=== PATIENT | male | born 1955 | race Caucasian/White ===

== ENCOUNTER 2016-09-10 18:24 | Emergency (ER) | payer MEDICARE ==
[~2016-09-10] VITALS: Ht 177.8 cm; Wt 154.2 kg
[2016-09-10] MEDS ORDERED: BP MED (19:02)
--- NOTE | 2016-09-10 19:07 | ED Chest Pain ---
General Chief Complaint: Chest Wall/Rib Pain Stated Complaint: CHEST PAIN THAT GOES TO BACK Nursing Triage Note: L BACK/CHEST PAIN X2 DAYS WITH DIAPHORESIS. WORSE ON PALPATION AND MOVEMENT. Nursing Sepsis Screen: No Definite Risk Source: patient Exam Limitations: no limitations History of Present Illness Time seen by provider: 18:59 Initial Comments Patient presents with his daughter to the ER for chest wall pain that is intermittent over the last 2 days that he feels in the left side under his breast. He was having some sweats and flushing although he states he has had flushes of the face all his life. He also has difficulty belching for many years and difficulty with swallowing for many years. He smokes a pack a day and drinks 4-5 beers every other day. He denies any other drug use, thyroid disorder. He does take medicines for his blood pressure and cholesterol. He has no prior history of ND however he had a stress test approximate 7 years ago that was normal. He denies having been screened for AAA. He denies shortness of breath Allergies and Home Medications Allergies Uncoded Allergies: ANTIBIOTIC (Allergy, Unknown, 09/10/16) Home Medications Famotidine 20 Mg Tablet, 20 MG PO BID for 30 Days, #60 Ref 0 Prescribed by: JUNIE PEREZ on 09/10/162151 [[facility]] , (Reported) Review of Systems Constitutional: No chills, No fever Respiratory: Denies Cough, Denies Shortness of Air, Denies SOA With Exertion Cardiovascular: See HPI, Chest Pain, Denies Edema, Denies Palpitations, Denies Syncope Gastrointestinal: Abdominal Pain (epigastric), Denies Constipated, Denies Diarrhea, Difficulty Swallowing, Nausea Genitourinary: Denies Burning, Denies Discharge Musculoskeletal: No back pain, No joint pain Skin: No pruritus, No rash Past [id number]-[id number] Hx Patient Social History Alcohol Use: Denies Use Recreational Drug Use: No Smoking Status: Current Everyday Smoker Recent Foreign Travel: No Contact w/Someone Who Travel: No Recent Infectious Disease Expo: No Recent Hopitalizations: No Surgeries HX Surgeries: Yes Surgeries: Appendectomy, Orthopedic Respiratory Hx Respiratory Disorders: Yes (BRONCHITIS) Cardiovascular Cardiac Disorders: Hypertension Genitourinary Hx Genitourinary Disorders: No Gastrointestinal Hx Gastrointestinal Disorders: No Physical Exam Vital Signs Vital Sign - Last 12Hours 09/10/16 18:46 Temp 98.2 Pulse 78 Resp 18 B/P (MAP) 124/89 Pulse Ox 98 Capillary Refill : Less Than 3 Seconds General Appearance: No Apparent Distress, WD/WN HEENT: PERRL/EOMI, TMs Normal, Normal ENT Inspection, Pharynx Normal Neck: Full Range of Motion, Normal Inspection Respiratory: Chest Non Tender, Lungs Clear Cardiovascular: Regular Rate, Rhythm, No Edema, Normal Peripheral Pulses Gastrointestinal: Normal Bowel Sounds, Soft, Tenderness (epigastric) Extremity: Normal Capillary Refill, Non Tender, No Calf Tenderness, No Pedal Edema Neurologic/Psychiatric: Alert, Oriented x3 Skin: Normal Color, Warm/Dry Progress/Results/Core Measures Results/Orders Lab Results Laboratory Tests Test 09/10/16 18:54 09/10/16 21:07 Range/Units White Blood Count 8.2 4.3-11.0 10^3/uL Red Blood Count 4.40 4.35-5.85 10^6/uL Hemoglobin 14.6 13.3-17.7 G/DL Hematocrit 43 40-54 % Mean Corpuscular Volume 97 80-99 FL Mean Corpuscular Hemoglobin 33 25-34 PG Mean Corpuscular Hemoglobin Concent 34 32-36 G/DL Red Cell Distribution Width 13.7 10.0-14.5 % Platelet Count 147 130-400 10^3/uL Mean Platelet Volume 9.7 7.4-10.4 FL Neutrophils (%) (Auto) 72 42-75 % Lymphocytes (%) (Auto) 20 12-44 % Monocytes (%) (Auto) 6 0-12 % Eosinophils (%) (Auto) 2 0-10 % Basophils (%) (Auto) 0 0-10 % Neutrophils # (Auto) 5.9 1.8-7.8 X 10^3 Lymphocytes # (Auto) 1.6 1.0-4.0 X 10^3 Monocytes # (Auto) 0.5 0.0-1.0 X 10^3 Eosinophils # (Auto) 0.2 0.0-0.3 10^3/uL Basophils # (Auto) 0.0 0.0-0.1 10^3/uL Prothrombin Time 11.8 L 12.2-14.7 SEC INR Comment 0.9 0.8-1.4 Activated Partial Thromboplast Time 29 24-35 SEC Sodium Level 142 135-145 MMOL/L Potassium Level 3.8 3.6-5.0 MMOL/L Chloride Level 98 98-107 MMOL/L Carbon Dioxide Level 30 21-32 MMOL/L Anion Gap 14 5-14 MMOL/L Blood Urea Nitrogen 22 H 7-18 MG/DL Creatinine 1.49 H 0.60-1.30 MG/DL Estimat Glomerular Filtration Rate 48 BUN/Creatinine Ratio 15 Glucose Level 127 H 70-105 MG/DL Calcium Level 10.7 H 8.5-10.1 MG/DL Magnesium Level 1.3 L 1.8-2.4 MG/DL Total Bilirubin 0.4 0.1-1.0 MG/DL Aspartate Amino Transf (AST/SGOT) 19 5-34 U/L Alanine Aminotransferase (ALT/SGPT) 22 0-55 U/L Alkaline Phosphatase 87 40-136 U/L Myoglobin 71.8 10.0-92.0 NG/ML Troponin I < 0.30 < 0.30 <0.30 NG/ML Total Protein 7.1 6.4-8.2 G/DL Albumin 4.2 3.2-4.5 G/DL My Orders Orders - JUNIE PEREZ Cbc With Automated Diff (09/10/16 19:07) Magnesium (09/10/16 19:07) Chest 1 View, Ap/Pa Only (09/10/16:07) Ekg Tracing (09/10/16 19:07) Cardiac Profile 1 (09/10/16 19:07) Comprehensive Metabolic Panel (09/10/16 19:07) Myoglobin Serum (09/10/16:07) Protime With Inr (09/10/16:07) Partial Thromboplastin Time (09/10/16:07) O2 (09/10/16:07) Monitor-Rhythm Ecg Trace Only (09/10/16:07) Aspirin Tablet (Aspirin Tablet) (09/10/16 19:15) Saline Lock/Iv-Start (09/10/16 19:07) Fentanyl Injection (Sublimaze Injection (09/10/16 19:15) Ondansetron Injection (Zofran Injectio (09/10/16 19:15) Fentanyl Injection (Sublimaze Injection (09/10/16 19:09) Ondansetron Injection (Zofran Injectio (09/10/16 19:09) Aspirin Chewable Tablet (Baby Aspirin Ch (09/10/16 19:09) Lidocaine 2% Viscous 15 Ml (Xylocaine Vi (09/10/16 20:15) Antacid Suspension (Mylanta Suspension (09/10/16 20:15) Famotidine Tablet (Pepcid Tablet) (09/10/16 20:15) Sucralfate Tablet (Carafate Tablet) (09/10/16 20:15) Troponin I (09/10/16 21:00) Ondansetron Injection (Zofran Injectio (09/10/16 20:30) Ondansetron Injection (Zofran Injectio (09/10/16 20:30) Medications Given in ED Current Medications Medications Dose Ordered Sig/Winter Route Start Time Stop Time Status Last Admin Dose Admin Al Hydrox/Mg Hydrox/Simethicone 30 ml ONCE ONCE PO 09/10/16 20:15 09/10/16 20:16 DC 09/10/16 21:12 30 ML Aspirin 81 mg STK-MED ONCE .ROUTE 09/10/16 19:09 09/10/16 19:13 DC 09/10/16 19:18 325 MG Famotidine 20 mg ONCE ONCE PO 09/10/16 20:15 09/10/16 20:16 DC 09/10/16 21:12 20 MG Fentanyl Citrate 50 mcg ONCE ONCE IVP 09/10/16 19:15 09/10/16 19:16 DC 09/10/16 19:15 50 MCG Lidocaine HCl 15 ml ONCE ONCE PO 09/10/16 20:15 09/10/16 20:16 DC 09/10/16 21:12 15 ML Ondansetron HCl 4 mg ONCE ONCE IVP 09/10/16 20:30 09/10/16 20:31 DC 09/10/16 20:28 4 MG Ondansetron HCl 4 mg STK-MED ONCE .ROUTE 09/10/16 19:09 09/10/16 19:12 DC 09/10/16 19:14 4 MG Sucralfate 1 gm ONCE ONCE PO 09/10/16 20:15 09/10/16 20:16 DC 09/10/16 21:11 1 GM Vital Signs/I&O Vital Sign - Last 12Hours 09/10/16 18:46 Temp 98.2 Pulse 78 Resp 18 B/P (MAP) 124/89 Pulse Ox 98 Blood Pressure Mean: 101 Progress Note : Time: 19:52 Progress Note Atypical chest pain that is reproducible on palpation. X-ray unremarkable. If underpenetrated. Initial troponin negative he is high risk many risk factors so will do a 2 troponin delta rule out and have him follow-up with his primary care physician regarding his looking okay. most his abdominal pain and nausea resolved after getting a GI cocktail 1. ECG EKG : EKG Time: 18:50 Rate: 75 Rhythm: Normal Sinus Intervals: Normal ECG Comparisson: No Previous ECG Available ECG Impression: Nonspecific Changes Diagnostic Imaging Diagonstic Imaging: Xray Plain Films/CT/US/NM/MRI: chest Comments No acute abnormalities noted. A little underpenetrated so difficult to appreciate the corners. No widened mediastinum. Reviewed: Reviewed by Me Departure Impression Impression: Primary Impression: Left-sided chest wall pain Disposition: HOME, SELF-CARE Condition: Stable Departure-Patient Inst. Decision time for Depature: 21:50 Referrals: MALINA AUSTIN MD (PCP) Primary Care Physician Patient Instructions: Chest Pain (DC) Add. Discharge Instructions: Your chest pain does not appear to be due to an acute heart attack. However because of your risk factors you should still follow-up this week with your primary care physician to have a more thorough workup. If you have new, worsening pain or symptoms he should return to the ER or go to your physician as appropriate. I sent a prescription for Pepcid to be picked up and taken twice daily to help with the pain since it seemed to respond to the GI cocktail given in the ER. All discharge instructions reviewed with patient and/or family. Voiced understanding. Scripts Famotidine (Pepcid) 20 Mg Tablet 20 MG PO BID for 30 Days, #60 TAB 0 Refills Prov: JUNIE PEREZ 09/10/16 Copy Copies To 1: MALINA AUSTIN MD, TITUS J Sep 10, 2016 19:07
[2016-09-10] MEDS ORDERED: ONDANSETRON 4 MG/2 ML (SDV) Z0FRAN ONE (19:09)
[2016-09-10] MEDS ORDERED: ASPIRIN 81 MG CHEW (CHILDREN'S ASA) ONE (19:09)
[2016-09-10 19:13] LABS: BASOPHILS % (AUTO) 0 % (0-10); EOSINOPHILS # (AUTO) 0.2 10^3/uL (0.0-0.3); EOSINOPHILS % (AUTO) 2 % (0-10); LYMPHOCYTES # (AUTO) 1.6 X 10^3 (1.0-4.0); LYMPHOCYTES % (AUTO) 20 % (12-44); MEAN CORPUSCULAR HEMOGLOBIN 33 PG (25-34); MEAN CORPUSCULAR HGB CONC 34 G/DL (32-36); MEAN CORPUSCULAR VOLUME 97 FL (80-99); MEAN PLATELET VOLUME 9.7 FL (7.4-10.4); MONOCYTES # (AUTO) 0.5 X 10^3 (0.0-1.0); MONOCYTES % (AUTO) 6 % (0-12); NEUTROPHILS # (AUTO) 5.9 X 10^3 (1.8-7.8); NEUTROPHILS % (AUTO) 72 % (42-75); PLATELET COUNT 147 10^3/uL (130-400); RED CELL DISTRIBUTION WIDTH 13.7 % (10.0-14.5); WHITE BLOOD COUNT 8.2 10^3/uL (4.3-11.0)
[2016-09-10] MEDS: fentaNYL INJECTION 100 MCG/2 ML AMP ONE ×2 (19:15→19:22)
[2016-09-10] MEDS ORDERED: ONDANSETRON 4 MG/2 ML (SDV) Z0FRAN IVP ONE ×3 (19:15→20:30)
[2016-09-10] MEDS ORDERED: fentaNYL INJECTION 100 MCG/2 ML AMP IVP ONE (19:15)
[2016-09-10] MEDS ORDERED: ASPIRIN 325 MG (5 GR) TABLET PO ONE (19:15)
[2016-09-10 19:21] LABS: INR 0.9 (0.8-1.4); PROTHROMBIN TIME PATIENT 11.8 SEC (12.2-14.7)
[2016-09-10 19:31] LABS: ALANINE AMINOTRANSFERASE 22 U/L (0-55); ALBUMIN 4.2 G/DL (3.2-4.5); ANION GAP 14 MMOL/L (5-14); ASPARTATE AMINO TRANSFERASE 19 U/L (5-34); BILIRUBIN,TOTAL 0.4 MG/DL (0.1-1.0); BLOOD UREA NITROGEN 22 MG/DL (7-18); BUN/CREATININE RATIO 15; CALCIUM 10.7 MG/DL (8.5-10.1); CARBON DIOXIDE 30 MMOL/L (21-32); CHLORIDE 98 MMOL/L (98-107); CREATININE SERUM 1.49 MG/DL (0.60-1.30); GFR ESTIMATED 48; GLUCOSE 127 MG/DL (70-105); MAGNESIUM 1.3 MG/DL (1.8-2.4); POTASSIUM 3.8 MMOL/L (3.6-5.0); SODIUM 142 MMOL/L (135-145); TOTAL PROTEIN 7.1 G/DL (6.4-8.2)
[2016-09-10 19:37] LABS: MYOGLOBIN SERUM 71.8 NG/ML (10.0-92.0)
--- NOTE | 2016-09-10 19:47 | Diagnostic Imaging Report ---
INDICATION: Chest pain. EXAMINATION: Upright chest was obtained. FINDINGS: Normal heart size and vascularity. The lungs are clear. There is no effusion or pneumothorax. IMPRESSION: Normal chest with no change from 06/16/12. Dictated by: Dictated on workstation # [id number]
[2016-09-10] MEDS ORDERED: FAMOTIDINE 20 MG (PEPCID) TABLET PO ONE (20:15)
[2016-09-10] MEDS ORDERED: SUCRALFATE 1 GM (CARAFATE) TAB PO ONE (20:15)
[2016-09-10] MEDS ORDERED: LIDOCAINE 2% VISCOUS 15 ML UDC PO ONE (20:15)
[2016-09-10] MEDS ORDERED: ANTACID SUSP 30 ML UDC (MYLANTA) PO ONE (20:15)
[2016-09-10] MEDS ORDERED: FAMO-119 PO (21:52)
[2016-09-10 22:05] VITALS: BP 204/118
== END 2016-09-10 22:06 | disposition home or self-care (01) ==
LOC: EDUNIT# 18:24 → ER 18:26
DX: R07.89 Other chest pain (principal); I10 Essential (primary) hypertension; F17.210 Nicotine dependence, cigarettes, uncomplicated; Z79.899 Other long term (current) drug therapy
CPT/HCPCS: 36415; 71010; 80053; 83735; 83874; 84484; 85025; 85610; 85730; 93005; 93041; 96374; 96375; 96376

== ENCOUNTER → 2017-04-24 | Outpatient (CLI) | payer MEDICARE, OTHER ==
[~2017-04-24] MED LIST: BP MED; CATHETER FLUSH 10 ML SYR IV PRN; FAMO-119 PO
[2017-04-24 12:22] LABS: BLOOD UREA NITROGEN 21 MG/DL (7-18); BUN/CREATININE RATIO 18; GFR ESTIMATED > 60
--- NOTE | 2017-04-24 19:45 | Diagnostic Imaging Report ---
INDICATION: Prostate cancer Whole body bone scan performed in a routine fashion with IV injection of 27.2 mCi of technetium 99M MDP. There is no previous study for comparison. There is physiologic uptake of the tracer throughout the skeleton. There is a focal area of increased uptake over the right costovertebral junction of T12, as an isolated lesion, this is statistically more likely to be posttraumatic. Correlation with recent CT of earlier today shows a subacute fracture in this location. Remainder of the skeleton showed no abnormal activity. IMPRESSION: No evidence of osseous metastatic disease. Focal area of increased uptake over the right T12 costovertebral junction, which in correlation with CT of earlier today shows a subacute fracture at this location. Dictated by: Dictated on workstation # [id number]
== END ==
LOC: RAD 11:32
PROVIDERS: ATTEND Urology
DX: R93.7 Abnormal findings on diagnostic imaging of other parts of musculoskeletal system (principal); C61 Malignant neoplasm of prostate
CPT/HCPCS: 36415; 78306; 82565; 84520